=== PATIENT | male | born 1935 | race Caucasian/White ===

== ENCOUNTER 2018-05-24 08:34 | Emergency (ER) | END 2018-05-24 11:07 | disposition home or self-care (01) ==

== ENCOUNTER 2018-06-05 10:22 | Emergency (ER) | payer MEDICARE ==
[~2018-06-05] VITALS: Ht 172.7 cm; Wt 77.3 kg
[2018-06-05 11:18] VITALS: Ht 172.7 cm; Wt 77.3 kg
[2018-06-05] MEDS ORDERED: APIX5TAB PO (12:05)
[2018-06-05] MEDS ORDERED: METF500T24 PO (12:06)
[2018-06-05] MEDS ORDERED: PANT40TA3 PO (12:06)
[2018-06-05] MEDS ORDERED: LOSA25TA6 PO (12:06)
[2018-06-05] MEDS ORDERED: ZOLP5TAB7 PO (12:07)
[2018-06-05] MEDS ORDERED: ATOR10TA65 PO (12:07)
[2018-06-05] MEDS ORDERED: CIPR500T4 PO (12:23)
[2018-06-05] MEDS ORDERED: CLOT30CR24 TOP (12:28)
--- NOTE | 2018-06-05 12:28 | ERD ---
ER Documentation Chief Complaint Chief Complaint EMS FROM ASSISTED LIVING D/T TO SCROTAL/PENIS PAIN, DIFF URINATING HPI 82-year-old male presents the emergency department from his assisted living facility for evaluation of dysuria. According to the patient, he has been having urinary tract symptoms for the last few days. He has had urinary tract infections before that of required hospitalization and so he was brought to the emergency department today as he states for evaluation prior to it gets to the point where he needs hosp italization. He reports pain localized to the tip of his penis. He reports no fevers chills or vomiting. ROS All systems reviewed and are negative except as per history of present illness. Medications Home Meds Active Scripts Ciprofloxacin Hcl* (Ciprofloxacin Hcl*) 500 Mg Tablet, 500 MG PO BID for 7 Days, TAB Prov:REED RAMIREZ 06/05/18 Reported Medications Zolpidem Tartrate* (Zolpidem Tartrate*) 5 Mg Tablet, 5 MG PO QHS PRN for INSOMNIA, #30 TAB 06/05/18 Atorvastatin Calcium (Atorvastatin Calcium) 10 Mg Tablet, 10 MG PO QHS, #30 TAB 06/05/18 Pantoprazole* (Protonix*) 40 Mg Tablet.dr, 40 MG PO DAILY, TAB 06/05/18 Losartan Potassium* (Losartan Potassium*) 25 Mg Tablet, 25 MG PO DAILY, TAB 06/05/18 Metformin Hcl* (Metformin Hcl*) 500 Mg Tablet, 500 MG PO WITH BREAKFAST DINNE, #60 TAB 06/05/18 Apixaban* (Eliquis*) 5 Mg Tablet, 5 MG PO BID, TAB 06/05/18 Allergies Allergies: Coded Allergies: No Known Allergy (Unverified , 06/05/18) PMhx/Soc History of Surgery: Yes (prostatectomy, hernia x 2, cataract x 2 ) Anesthesia Reaction: No Hx Neurological Disorder: No Hx Respiratory Disorders: No Hx Cardiac Disorders: Yes (htn) Hx Psychiatric Problems: No Hx Miscellaneous Medical Probl: Yes (prostate cx, dm) Hx Alcohol Use: No Hx Substance Use: No Hx Tobacco Use: No Smoking Status: Never smoker FmHx Noncontributory for chief complaint Physical Exam Vitals Vital Signs Date Temp Pulse Resp B/P (MAP) Pulse Ox O2 O2 Flow FiO2 Time Delivery Rate 06/05/18 98.9 98 18 105/84 98 11:18 (91) Physical Exam GENERAL: elderly male in no acute distress HEENT: Pupils equal, round, and reactive to light. EOMI. There is no scleral icterus. NECK: C-spine is soft and supple, there is no meningismus. There is no cervical lymphadenopathy. LUNGS: Clear to auscultation bilaterally. There are no rales, wheezes or rhonchi. HEART: Regular rate and rhythm, no murmurs, clicks, rubs or gallops. ABDOMEN: Soft, non-tender, non-distended. There are bowel sounds in all four quadrants. No rebound or guarding. No CVA tenderness : Patient has inflammation of the tip of his penis consistent with a balanitis. No obvious masses EXTREMITIES: There is no peripheral cyanosis or edema. No focal swelling or erythema. NEURO: The patient moves all four extremities with 5/5 strength. Cranial nerves II - XII are intact. Normal gait. Alert and oriented SKIN: There is no apparent rash or petechiae. HEME/LYMPHATIC: There is no evidence of excessive bruising or lymphedema. PSYCHIATRIC: The patient does not appear anxious or depressed. Result Diagram: 06/05/18 1049 06/05/18 1049 Results 24 hrs Laboratory Tests Test 06/05/18 10:49 06/05/18 10:50 White Blood Count 8.1 10^3/ul Red Blood Count 4.32 10^6/ul Hemoglobin 13.8 g/dl Hematocrit 41.1 % Mean Corpuscular Volume 95.1 fl Mean Corpuscular Hemoglobin 31.9 pg Mean Corpuscular Hemoglobin Concent 33.6 g/dl Red Cell Distribution Width 14.0 % Platelet Count 205 10^3/UL Mean Platelet Volume 11.1 fl Immature Granulocytes % 0.500 % Neutrophils % 76.7 % Lymphocytes % 10.6 % Monocytes % 7.3 % Eosinophils % 4.8 % Basophils % 0.1 % Nucleated Red Blood Cells % 0.0 /100WBC Immature Granulocytes # 0.040 10^3/ul Neutrophils # 6.2 10^3/ul Lymphocytes # 0.9 10^3/ul Monocytes # 0.6 10^3/ul Eosinophils # 0.4 10^3/ul Basophils # 0.0 10^3/ul Nucleated Red Blood Cells # 0.0 10^3/ul Sodium Level 140 mmol/L Potassium Level 4.1 mmol/L Chloride Level 106 mmol/L Carbon Dioxide Level 22 mmol/L Anion Gap 12 Blood Urea Nitrogen 15 mg/dl Creatinine 1.44 mg/dl Est Glomerular Filtrat Rate mL/min mL/min Glucose Level 146 mg/dl Calcium Level 9.9 mg/dl Total Bilirubin 0.3 mg/dl Direct Bilirubin 0.00 mg/dl Indirect Bilirubin 0.3 mg/dl Aspartate Amino Transf (AST/SGOT) 25 IU/L Alanine Aminotransferase (ALT/SGPT) 14 IU/L Alkaline Phosphatase 118 IU/L Total Protein 8.0 g/dl Albumin 4.5 g/dl Globulin 3.50 g/dl Albumin/Globulin Ratio 1.28 Lipase 69 U/L Urine Color YELLOW Urine Clarity SLIGHTLY CLOUDY Urine pH 5.0 Urine Specific [place] 1.019 Urine Ketones NEGATIVE mg/dL Urine Nitrite NEGATIVE mg/dL Urine Bilirubin NEGATIVE mg/dL Urine Urobilinogen NEGATIVE mg/dL Urine Leukocyte Esterase 2+ Ryan/ul Urine Microscopic RBC 21 /HPF Urine Microscopic WBC 13 /HPF Urine Bacteria FEW /HPF Urine Mucus FEW /HPF Urine Hemoglobin NEGATIVE mg/dL Urine Glucose NEGATIVE mg/dL Urine Total Protein 2+ mg/dl Procedures/MDM Patient was taken to a room, seen and evaluated. Comfort measures were initiated. Diagnostic tests were ordered and reviewed. REEVALUATION: Diagnostic tests were appreciated and discussed with the patient and arrangements were made for outpatient care. [employer] DECISION MAKIN-year-old male presents the emergency room with what appears to be a balanitis and urinary tract infection. Patient appears to be nontoxic and nonseptic and appropriate for outpatient supportive care. Departure Diagnosis: Primary Impression: Other urinary problems Additional Impressions: Urinary tract infection Balanitis Condition: Stable Patient Instructions: Urinary Tract Infections in Men, Balanitis Additional Instructions: See your doctor for follow-up as discussed. Take a copy of your test results, if appropriate, to this follow-up visit. See your doctor or return here if your symptoms do not improve as expected. At any time, please return to the emergency department for any change or worsening in her symptoms. REED RAMIREZ Jun 05, 2018 12:28
[2018-06-05] MEDS ORDERED: CIPROFLOXACIN 500 MG TAB PO ONE (14:00)
[2018-06-05 15:29] VITALS: BP 117/81; PULSE 74; RESP 18
== END 2018-06-05 15:29 | disposition home or self-care (01) ==
LOC: E/R 10:22
DX: N39.0 Urinary tract infection, site not specified (principal); E11.9 Type 2 diabetes mellitus without complications; I10 Essential (primary) hypertension; N48.1 Balanitis; Z79.84 Long term (current) use of oral hypoglycemic drugs; Z85.46 Personal history of malignant neoplasm of prostate
CPT/HCPCS: 36415; 80053; 81001; 83690; 85025; 99283